=== PATIENT | female | born 1995 | race African-American/Black ===

== ENCOUNTER 2024-02-01 16:43 | Emergency (ER) | payer BC ==
[~2024-02-01] VITALS: Ht 167.6 cm; Wt 91.0 kg
[2024-02-01 16:50] VITALS: O2SAT 99
[2024-02-01 18:48] LABS: BASOPHILS % 0.6 % (0.0-2.0); CHLORIDE 105 mEq/L (98-107); DIFFERENTIAL COMMENT 0; EOSINOPHILS % 0.9 % (0.0-5.0); HEMATOCRIT. 41.7 % (36.0-48.0); HEMOGLOBIN. 13.3 g/dL (12.0-16.0); LYMPHOCYTES % 18.3 % (20.0-50.0); MEAN CORPUSCULAR HEMOGLOBIN 24.9 pg (28.0-32.0); MEAN CORPUSCULAR HGB CONC 31.9 g/dL (31.0-37.0); MEAN CORPUSCULAR VOLUME 78.1 fL (81.0-99.0); MEAN PLATELET VOLUME 8.4 fl (7.4-10.4); NEUTROPHILS % 74.2 % (40.0-76.0); PLATELET 363 x1000/uL (130-400); POTASSIUM 3.5 mEq/L (3.5-5.1); RED BLOOD CELL COUNT 5.34 mill/uL (4.2-5.4); SODIUM 139 mEq/L (136-145); WHITE BLOOD COUNT 10.6 x1000/uL (4.5-11.0)
[2024-02-01 18:49] LABS: CARBON DIOXIDE 27 mEq/L (21-32)
[2024-02-01 18:50] LABS: CALCIUM 9.6 mg/dL (8.7-10.4)
[2024-02-01 18:54] LABS: CREATININE 1.1 mg/dL (0.6-1.0)
[2024-02-01 18:55] LABS: GLUCOSE 119 mg/dL (70-105)
[2024-02-01 18:56] LABS: ALANINE AMINOTRANSFERASE 25 IU/L (10-49); ALBUMIN 4.7 g/dL (3.2-4.8); ASPARTATE AMINOTRANSFERASE 19 IU/L (<34)
[2024-02-01 18:57] LABS: BILIRUBIN TOTAL 0.2 mg/dL (0.1-1.0); PROTEIN TOTAL 7.7 g/dL (6.0-8.3)
[2024-02-01 19:00] LABS: HCG SCREEN NEGATIVE
[2024-02-01 19:08] LABS: BILIRUBIN DIRECT < 0.1 mg/dL (<=3.0); UREA NITROGEN BLOOD < 5 mg/dL (9-23)
[2024-02-01 19:09] LABS: TROPONIN I HIGH SENSITIVITY < 4 ng/L (3.0-34)
[2024-02-01 19:14] LABS: CLARITY URINE CLEAR (CLEAR); COLOR URINE YELLOW (YELLOW); GLUCOSE URINE NEGATIVE (NEGATIVE); KETONES URINE NEGATIVE (NEGATIVE); LEUKOCYTE ESTERASE URINE 1+ (NEGATIVE); NITRITE URINE NEGATIVE (NEGATIVE); OCCULT BLOOD URINE NEGATIVE (NEGATIVE); PROTEIN URINE NEGATIVE (NEGATIVE); SPECIFIC GRAVITY URINE 1.008 (1.005-1.030); UROBILINOGEN URINE 0.2 E.U./dL (0.2-1.0)
[2024-02-01 19:19] LABS: D-DIMER 0.43 mg/L FEU (<0.50); PROTHROMBIN TIME 10.7 sec (9.6-11.0)
[2024-02-01 19:58] LABS: BACTERIA URINE TRACE; RBC URINE NONE SEEN /hpf (0-2); SQUAMOUS EPITHELIAL CELL URINE 1+ /lpf (RARE/1+); WBC URINE 0-2 /hpf (0-2)
[2024-02-01] MEDS ORDERED: MAG-55 MT (20:17)
[2024-02-01] MEDS ORDERED: FAMO-135 MT (20:17)
[2024-02-01 20:27] VITALS: BP 115/72; PULSE 83; RESP 15; TEMP 36.89184; O2SAT 98
== END 2024-02-01 20:31 | disposition home or self-care (01) ==
LOC: ER 16:43
DX: R07.9 Chest pain, unspecified (principal); Z90.89 Acquired absence of other organs
CPT/HCPCS: 36415; 71045; 80048; 80076; 81003; 84484; 84703; 85025; 85379; 93005; 99285